=== PATIENT | female | born 1965 | race Caucasian/White ===

== ENCOUNTER → 2016-11-08 | Outpatient (CLI) | payer BC ==
--- NOTE | 2016-11-09 11:34 | MM ---
Reason for exam: screening (asymptomatic). Last mammogram was performed 1 year and 3 months ago. History: Patient is postmenopausal. Reductions of both breasts, 1988. Took hormonal contraceptives for 1 year beginning at age 21. Taking other hormone for 5 years beginning at age 37. Physical Findings: A clinical breast exam by your physician is recommended on an annual basis and results should be correlated with mammographic findings. MG 3D Screening Mammo W/Cad Bilateral CC and MLO view(s) were taken. Prior study comparison: August 03, 2015, bilateral MG screening mammo w CAD. January 07, 2014, bilateral digital screening mammo w/CAD. November 05, 2012, CAD bilateral diagnostic mammogram. The breast tissue is heterogeneously dense. This may lower the sensitivity of mammography. Finding: There are typically benign round calcifications in both breasts. There is no discrete abnormality. ASSESSMENT: Benign, BI-RAD 2 RECOMMENDATION: Routine screening mammogram of both breasts in 1 year.
== END | disposition home or self-care (01) ==
LOC: RADMAMWWP 07:14
PROVIDERS: ATTEND Internal Medicine
DX: Z12.31 Encounter for screening mammogram for malignant neoplasm of breast (principal)
CPT/HCPCS: 77063; G0202

== ENCOUNTER → 2017-11-29 | Outpatient (CLI) | payer BC ==
--- NOTE | 2017-11-29 14:12 | MM ---
Reason for exam: screening (asymptomatic). Last mammogram was performed 1 year and 1 month ago. History: Patient is postmenopausal. Reductions of both breasts, 1988. Took hormonal contraceptives for 1 year beginning at age 21. Taking other hormone for 5 years beginning at age 37. Physical Findings: A clinical breast exam by your physician is recommended on an annual basis and results should be correlated with mammographic findings. MG 3D Screening Mammo W/Cad Bilateral CC and MLO view(s) were taken. Prior study comparison: November 08, 2016, bilateral MG 3d screening mammo w/cad. August 03, 2015, bilateral MG screening mammo w CAD. The breast tissue is heterogeneously dense. This may lower the sensitivity of mammography. Finding: There are typically benign round calcifications in both breasts. There is no discrete abnormality. ASSESSMENT: Benign, BI-RAD 2 RECOMMENDATION: Routine screening mammogram of both breasts in 1 year.
== END | disposition home or self-care (01) ==
LOC: RADMAMWWP 06:57
PROVIDERS: ATTEND Internal Medicine
DX: Z12.31 Encounter for screening mammogram for malignant neoplasm of breast (principal)
CPT/HCPCS: 77063; 77067

== ENCOUNTER → 2019-01-27 | Outpatient (CLI) | payer BC ==
--- NOTE | 2019-01-27 18:27 | BD ---
EXAMINATION TYPE: Axial Bone Density DATE OF EXAM: 01/27/2019 COMPARISON: NONE CLINICAL HISTORY: 53-year-old female postmenopausal screening Height: 68 IN Weight: 224 LBS FRAX RISK QUESTIONS: Secondary Osteoporosis: 2. Hyperthyroidism: YES 3. Menopause before 45: PARTIAL HYST. AGE 44 RISK FACTORS HISTORY OF: Active: YES Diet low in dairy products/other sources of calcium: YES Postmenopausal woman: AGE 44 Take estrogen and/or progesterone medications: CONTROL AGE 18-19 MEDICATIONS: Thyroid Medications: YES Which medication: Synthroid How Lon + YEARS Additional Medications: SYNTHROID, METOPROLOL,WATER PILL, LIPITOR EXAM MEASUREMENTS: Bone mineral densitometry was performed using the Synthace System. Bone mineral density as measured about the Lumbar spine is: ----- L1-L4(G/cm2): 1.163 T Score Values are as follows: ----- L2: 0.3 ----- L3: -0.2 ----- L4: 0.7 ----- L1-L4: -0.1 Bone mineral density BASELINE Bone mineral density about the R hip (g/cm2): 0.909 Bone mineral density about the L hip (g/cm2): 0.973 T Score values are as follows: -----R Neck: -0.9 -----L Neck: -0.5 -----R Total: -0.9 -----L Total: -0.9 Bone mineral density BASELINE IMPRESSION: Normal (Values between +1 and -1 indicate normal bone mass). Consider repeating this study in 5 year s or sooner if there is some new clinical indication. NOTE: T-SCORE=SD OF THE YOUNG ADULT MEAN.
--- NOTE | 2019-01-29 11:42 | MM ---
Reason for exam: screening (asymptomatic). Last mammogram was performed 1 year and 2 months ago. History: Patient is postmenopausal. Reductions of both breasts, 1988. Took hormonal contraceptives for 1 year beginning at age 21. Taking other hormone for 5 years beginning at age 37. Physical Findings: A clinical breast exam by your physician is recommended on an annual basis and results should be correlated with mammographic findings. MG 3D Screening Mammo W/Cad Bilateral CC and MLO view(s) were taken. Prior study comparison: November 29, 2017, bilateral MG 3d screening mammo w/cad. November 08, 2016, bilateral MG 3d screening mammo w/cad. The breast tissue is heterogeneously dense. This may lower the sensitivity of mammography. Post mammoplasty changes. No significant changes when compared with prior studies. ASSESSMENT: Benign, BI-RAD 2 RECOMMENDATION: Routine screening mammogram of both breasts in 1 year.
== END | disposition home or self-care (01) ==
LOC: RADMAMWWP 06:49
PROVIDERS: ATTEND Obstetrics & Gynecology
DX: Z12.31 Encounter for screening mammogram for malignant neoplasm of breast (principal); Z78.0 Asymptomatic menopausal state
CPT/HCPCS: 77063; 77067; 77080

== ENCOUNTER → 2020-09-30 | Outpatient (CLI) | payer BC ==
--- NOTE | 2020-10-05 10:01 | MM ---
Reason for exam: screening (asymptomatic). Last mammogram was performed 1 year and 8 months ago. History: Patient is postmenopausal. Reductions of both breasts, 1988. Took hormonal contraceptives for 1 year beginning at age 21. Taking other hormone for 5 years beginning at age 37. Physical Findings: A clinical breast exam by your physician is recommended on an annual basis and results should be correlated with mammographic findings. MG 3D Screening Mammo W/Cad Bilateral CC and MLO view(s) were taken. Prior study comparison: January 27, 2019, bilateral MG 3d screening mammo w/cad. November 29, 2017, bilateral MG 3d screening mammo w/cad. The breast tissue is heterogeneously dense. This may lower the sensitivity of mammography. There is chronic nodularity bilaterally. No significant changes when compared with prior studies. ASSESSMENT: Benign, BI-RAD 2 RECOMMENDATION: Routine screening mammogram of both breasts in 1 year.
== END | disposition home or self-care (01) ==
LOC: RADMAMWWP 08:14
PROVIDERS: ATTEND Obstetrics & Gynecology
DX: Z12.31 Encounter for screening mammogram for malignant neoplasm of breast (principal)
CPT/HCPCS: 77063; 77067

== ENCOUNTER → 2021-06-15 | Outpatient (CLI) | payer BC ==
--- NOTE | 2021-06-15 13:46 | ECHOS ---
STRESS ECHOCARDIOGRAM DATE OF STUDY: 06/15/2021 INDICATIONS: @@ BASELINE HEART RATE: @@ BASELINE BLOOD PRESSURE: @@ MAXIMUM HEART RATE: @@ MAXIMUM BLOOD PRESSURE: @@ 85% MPHR: @@ 100% MPHR: @@ METS: @@ MAXIMUM STAGE REACHED: @@ TOTAL EXERCISE TIME: @@ CLINICAL INFORMATION: STRESS DATA: Heart rate is 74, pressure 113/44 mmHg. Baseline EKG showed sinus mechanism. The patient exercised on the treadmill according to Hoang protocol for a total of 8 minutes and 50 seconds. Max heart rate was 159, which is about 98% of maximum predicted heart rate, and maximum blood pressure was 263/48 mmHg. Clinically the patient did not have any symptoms. The EKG did not show any significant ST or T- wave abnormalities concerning for ischemia. Echocardiogram images from parasternal long axis view, parasternal short axis view, apical 4-chamber and apical 2-chamber views were obtained as the baseline images, at the peak of the heart rate as well as on recovery. The echocardiogram images showed good augmentation in the left ventricular systolic function without any evidence of wall motion abnormalities concerning for ischemia. CONCLUSION: 1. Excellent exercise tolerance. 2. Normal EKG in response to exercise. 3. Normal echocardiogram in response to exercise. MMODL / IJN: [id number] /
== END | disposition home or self-care (01) ==
LOC: RADNMMAIN 09:06
PROVIDERS: ATTEND Internal Medicine
DX: R07.9 Chest pain, unspecified (principal)
CPT/HCPCS: 93351; Q9950

== ENCOUNTER 2021-08-04 05:58 | Emergency (ER) | payer BC ==
[2021-08-04 06:09] VITALS: BP 139/92; PULSE 89; RESP 20; TEMP 98.8
--- NOTE | 2021-08-04 06:46 | ED ---
SOB HPI - General Chief Complaint: Shortness of Breath Stated Complaint: SOB,Cough Time Seen by Provider: 08/04/21 06:09 Source: patient, RN notes reviewed Mode of arrival: ambulatory - History of Present Illness Initial Comments: Patient is a 55-year-old female that presents to the emergency department complaining of being Covid-positive since 07/26/2021. She notes that last night she got over the bathroom had an episode of diarrhea then felt like all of her limbs went numb. She was able to walk to the bed to reach was herself. She notes that she had felt nauseous and vomiting. She notes that she came to the emergency room to get a chest x-ray to make sure she didn't have any pneumonia. She notes that her son had Covid back in December and waited too long to get eval uated and develops pneumonia with empyema. She notes she is concerned for possible pneumonia at this time and only wants chest x-ray. She denied any chest pain headache constipation fever fatigue chills wheezing dyspnea on exertion night sweats. - Related Data Home Medications Medication Instructions Recorded Confirmed Cholecalciferol [Vitamin D3] 2,000 unit PO DAILY 09/15/16 09/20/16 LORazepam [Ativan] 1 mg PO DIRECTED PRN 09/15/16 09/20/16 Levothyroxine Sodium [Synthroid] 175 mcg PO DAILY 09/15/16 09/20/16 Maxzide (Unknown Dose) 1 tab PO PC-LUNCH 09/15/16 09/20/16 Metoprolol (Unknown Dose) 0.5 tab PO HS 09/15/16 09/20/16 Multivitamins, Thera [Multivitamin] 1 tab PO DAILY 09/15/16 09/20/16 Allergies Allergy/AdvReac Type Severity Reaction Status Date / Time No Known Allergies Allergy Verified 08/04/21 06:09 Review of Systems ROS Statement: Those systems with pertinent positive or pertinent negative responses have been documented in the HPI. ROS Other: All systems not noted in ROS Statement are negative. Past Medical History Past Medical History: Hypertension, Thyroid Disorder History of Any Multi-Drug Resistant Organisms: None Reported Past Surgical History: Appendectomy, Breast Surgery, Hysterectomy Additional Past Surgical History / Comment(s): PARTIAL HYSTERECTOMY, BUNIONECTOMY, BREAST REDUCTION, THYROID RADIATED. Past Anesthesia/Blood Transfusion Reactions: Family History of Problems w/ Anesthesia, Motion Sickness, Postoperative Nausea & Vomiting (PONV) Additional Past Anesthesia/Blood Transfusion Reaction / Comment(s): MOTHER =PONV Past Psychological History: Anxiety Smoking Status: Never smoker Past Alcohol Use History: Occasional Past Drug Use History: None Reported - Past Family History Mother Family Medical History: No Reported History General Exam General appearance: alert, in no apparent distress, obese Head exam: Present: atraumatic, normocephalic, normal inspection Eye exam: Present: normal appearance, PERRL, EOMI. Absent: scleral icterus, conjunctival injection, periorbital swelling ENT exam: Present: normal exam, mucous membranes moist Neck exam: Present: normal inspection Respiratory exam: Present: normal lung sounds bilaterally. Absent: respiratory distress, wheezes, rales, rhonchi, stridor Cardiovascular Exam: Present: regular rate, normal rhythm, normal heart sounds. Absent: systolic murmur, diastolic murmur, rubs, gallop, clicks GI/Abdominal exam: Present: soft, normal bowel sounds. Absent: distended, tenderness, guarding, rebound, rigid Extremities exam: Present: normal inspection, full ROM, normal capillary refill. Absent: tenderness, pedal edema, joint swelling, calf tenderness Neurological exam: Present: alert, oriented X3 Psychiatric exam: Present: normal affect, normal mood Skin exam: Present: warm, dry, intact, normal color. Absent: rash Course Vital Signs 08/04/21 06:05 Temperature 98.8 F Pulse Rate 89 Respiratory 20 Rate Blood Pressure 139/92 O2 Sat by Pulse 98 Oximetry Medical Decision Making - Medical Decision Making 55-year-old female Covid-positive with left-sided nausea vomiting diarrhea wan ting a chest x-ray this time. Chest x-ray ordered. Patient was informed that she does meet criteria for monoclonal antibody infusion for Covid positive result. Patient states she will think about it as she is not sure if she needs it at this time due to her displaying very minimal symptoms. Chest x-ray shows subtle mid and lower lobes infiltrates consistent with Covid. Case discussed with Dr. Isabel, patient can discharge home with continuing conservative management follow-up primary care. - Radiology Data Radiology results: report reviewed, image reviewed Chest x-ray: Subtle interstitial density mid and lower lungs reflect subtle covert infiltrates. No kraig airspace disease. Disposition Clinical Impression: COVID Disposition: HOME SELF-CARE Condition: Stable Instructions (If sedation given, give patient instructions): Coronavirus Disease 2019 (COVID-19) Additional Instructions: Please return to the Emergency Department if symptoms worsen or any other concerns. Follow-up with primary care in 1-2 days. Continue conservative management with Tylenol Motrin as needed for aches pains and fevers. Get plenty of rest and fluids. Is patient prescribed a controlled substance at d/c from ED?: No Referrals: Samuel Haile MD [Primary Care Provider] - 1-2 days Time of Disposition: 07:32
--- NOTE | 2021-08-04 07:26 | XR ---
EXAMINATION TYPE: XR chest 2V DATE OF EXAM: 08/04/2021 COMPARISON: None HISTORY: 55-year-old female COVID, cough, shortness of breath TECHNIQUE: PA and lateral views FINDINGS: The cardiomediastinal silhouette, aorta, and pulmonary vasculature are within normal limits. Mild int erstitial density mid and lower lungs. Hazy lower lung density related to overlying soft tissue. No f rank consolidation or pleural effusion. IMPRESSION: Subtle interstitial density mid and lower lungs could reflect subtle COVID infiltrates. No kraig airs pace disease.
== END 2021-08-04 07:57 | disposition home or self-care (01) ==
LOC: EC 05:58
DX: U07.1 COVID-19 (principal); I10 Essential (primary) hypertension; E07.9 Disorder of thyroid, unspecified; F41.9 Anxiety disorder, unspecified; Z90.49 Acquired absence of other specified parts of digestive tract; Z90.710 Acquired absence of both cervix and uterus
CPT/HCPCS: 71046; 99284

== ENCOUNTER → 2022-01-13 | Outpatient (CLI) | payer BC ==
--- NOTE | 2022-01-18 08:36 | MM ---
Reason for exam: screening (asymptomatic). Last mammogram was performed 1 year and 3 months ago. History: Patient is postmenopausal. Reductions of both breasts, 1988. Took hormonal contraceptives for 1 year beginning at age 21. Taking other hormone for 5 years beginning at age 37. Physical Findings: A clinical breast exam by your physician is recommended on an annual basis and results should be correlated with mammographic findings. MG 3D Screening Mammo W/Cad Bilateral CC and MLO view(s) were taken. Prior study comparison: September 30, 2020, bilateral MG 3d screening mammo w/cad. January 27, 2019, bilateral MG 3d screening mammo w/cad. Finding: There is increased equal architectural distortion in the lower outer quadrant, middle position of the left breast on CC view, not as clearly seen on MLO view. New finding since September 30, 2020 and January 27, 2019. ASSESSMENT: Incomplete: need additional imaging evaluation, BI-RAD 0 RECOMMENDATION: Special view mammogram of the left breast. If lesion persists on supplemental views, image directed ultrasound is recommended. [facility] will attempt to contact patient to return for supplemental views and ultrasound if indicated.
== END | disposition home or self-care (01) ==
LOC: RADMAMWWP 16:23
PROVIDERS: ATTEND Obstetrics & Gynecology
DX: Z12.31 Encounter for screening mammogram for malignant neoplasm of breast (principal); Z78.0 Asymptomatic menopausal state
CPT/HCPCS: 77063; 77067

== ENCOUNTER → 2022-01-18 | Outpatient (CLI) | payer BC ==
--- NOTE | 2022-01-19 13:34 | MM ---
Reason for exam: additional evaluation requested from abnormal screening. Last mammogram was performed less than 1 month ago. History: Patient is postmenopausal. Reductions of both breasts, 1988. Took hormonal contraceptives for 1 year beginning at age 21. Taking other hormone for 5 years beginning at age 37. Physical Findings: A clinical breast exam by your physician is recommended on an annual basis and results should be correlated with mammographic findings. MG 3D Work Up W/Cad LT Spot compression CC, spot compression MLO, and LM view(s) were taken of the left breast. Prior study comparison: January 13, 2022, bilateral MG 3d screening mammo w/cad. September 30, 2020, bilateral MG 3d screening mammo w/cad. Persistent distortion outer left breast. Ultrasound recommended of outer half, 6.7cm from nipple. Results were given to the patient verbally at the time of the exam. ASSESSMENT: Incomplete: need additional imaging evaluation, BI-RAD 0 RECOMMENDATION: Ultrasound of the left breast.
--- NOTE | 2022-01-19 13:37 | USB ---
Reason for exam: additional evaluation requested from abnormal screening. History: Patient is postmenopausal. Reductions of both breasts, 1988. Took hormonal contraceptives for 1 year beginning at age 21. Taking other hormone for 5 years beginning at age 37. Physical Findings: A clinical breast exam by your physician is recommended on an annual basis and results should be correlated with mammographic findings. US Breast Workup Limited LT Left limited breast ultrasound including focal area of concern, retroareolar and axilla demonstrates no cystic or solid lesion seen. No abnormality seen. Given area of distortion on mammography 3D stereotactic core biopsy recommended. Results were given to the patient verbally at the time of the exam. ASSESSMENT: Suspicious, BI-RAD 4 RECOMMENDATION: Stereotactic core biopsy of the left breast. (3D stereotactic core biopsy) Called Dr. Layton's office with mammographic findings. Dr. Layton's office to follow up with patient and will schedule appointment for the patient with Dr. Sierra after biospy. PRELIMINARY REPORT CALLED AND FAXED TO DR. SIERRA ON 01/19/22.
== END | disposition home or self-care (01) ==
LOC: RADMAMWWP 14:42
PROVIDERS: ATTEND Obstetrics & Gynecology
DX: R92.8 Other abnormal and inconclusive findings on diagnostic imaging of breast (principal)
CPT/HCPCS: 77061; 77065

== ENCOUNTER → 2022-09-14 | Outpatient (CLI) | payer BC ==
--- NOTE | 2022-09-15 17:19 | MM ---
Reason for Exam: Follow-up at short interval from prior study. Last screening mammogram was performed 8 month(s) ago. Patient History: Menarche at age 13. First Full-Term at age 31. Late child-bearing (after 31). Hysterectomy at age 44. Postmenopausal. Hormonal Contraceptives, starting at age 21 for 1 year. 02/02/2022, MG stereo VAD BX LT - 2 on the Left side. 1988, Bilateral Reduction. Risk Values: Ene 5 year model risk: 2.0%. NCI Lifetime model risk: 12.8%. Prior Study Comparison: 08/13/2008 Bilateral Diagnostic Mammogram, [facility]. 12/09/2009 Bilateral Diagnostic Mammogram, [facility]. 08/23/2011 Bilateral Diagnostic Mammogram, [facility]. 11/05/2012 Bilateral Diagnostic Mammogram, [facility]. 01/07/2014 Bilateral Screening Mammogram, [facility]. 08/03/2015 Bilateral Screening Mammogram, [facility]. 11/08/2016 Bilateral Screening Mammogram, [facility]. 11/29/2017 Bilateral Screening Mammogram, [facility]. 01/27/2019 Bilateral Screening Mammogram, [facility]. 09/30/2020 Bilateral Screening Mammogram, [facility]. 01/13/2022 Bilateral Screening Mammogram, [facility]. 01/18/2022 Left Diagnostic Mammogram, [facility]. 01/18/2022 Left Diagnostic Ultrasound, [facility]. Tissue Density: Left: The breast tissue is heterogeneously dense. This may lower the sensitivity of mammography. Findings: Analyzed By CAD. Pattern appears stable. A core biopsy clip is at the area of distortion from the prior exams. No significant interval change is evident. Overall Assessment: Benign, BI-RAD 2 Management: Screening Mammogram of both breasts in 6 months. A clinical breast exam by your physician is recommended on an annual basis and results should be correlated with mammographic findings. This exam should not preclude additional follow-up of suspicious palpable abnormalities. Results were given to the patient verbally at the time of exam. Electronically signed and approved by: Pop Jett D.O. Radiologis
== END | disposition home or self-care (01) ==
LOC: RADMAMWWP 09:24
PROVIDERS: ATTEND Surgery
DX: R92.8 Other abnormal and inconclusive findings on diagnostic imaging of breast (principal); Z78.0 Asymptomatic menopausal state
CPT/HCPCS: 77061; 77065

== ENCOUNTER 2023-02-05 06:45 | Day surgery (SDC) | payer BC ==
[~2023-02-05 06:45] MED LIST: ACETAMINOPHEN TAB 500 MG TAB PO PRN; HEPARIN SODIUM,PORCINE/PF 5,000 UNIT/0.5 ML SYRINGE SQ PRN; Pre Op ABX Message 1 EACH MISC MISCELLANE ONE
[2023-02-05] MEDS ORDERED: HYDROmorphone 0.5 MG/0.5 ML SYRINGE IVP PRN (07:01)
[2023-02-05] MEDS ORDERED: ONDANSETRON 4 MG/2 ML VIAL IVP ONE (07:01)
[2023-02-05] MEDS ORDERED: LACTATED RINGERS 1,000 ML IV SCH (07:01)
[2023-02-05] MEDS ORDERED: DEXAMETHASONE SOD PHOSPHATE 4 MG/ML 1 ML VIAL IV ONE (07:01)
[2023-02-05] MEDS ORDERED: ALPRAZolam 0.5 MG TAB ONE (07:37)
--- NOTE | 2023-02-05 07:45 | P.GSHP ---
History of Present Illness H&P Date: 02/05/23 Chief Complaint: Abnormal left mammogram 57-year-old female presents today for left breast wire localization biopsy. Patient had a previous stereotactic core biopsy left breast at an area of distortion. Fat necrosis was seen. On subsequent mammogram the area of distortion persists and has increased. For that reason [facility] and our radiography team here are suggesting wire localization biopsy of that area of distortion left breast because of discordance. Patient had a recent ultrasound core biopsy showing benign fat necrosis and a small cyst. She has a right-sided 9 mm lymph node being monitored. Follow-up ultrasound in March is scheduled. History of previous bilateral breast reduction. Past Medical History Past Medical History: Hyperlipidemia, Hypertension, Thyroid Disorder Additional Past Medical History / Comment(s): thyroid irradiated History of Any Multi-Drug Resistant Organisms: None Reported Past Surgical History: Appendectomy, Breast Surgery, Hysterectomy Additional Past Surgical History / Comment(s): PARTIAL HYSTERECTOMY, BUNIONECTOMY, BREAST REDUCTION Past Anesthesia/Blood Transfusion Reactions: Family History of Problems w/ Anesthesia, Motion Sickness, Postoperative Nausea & Vomiting (PONV) Additional Past Anesthesia/Blood Transfusion Reaction / Comment(s): MOTHER =PONV Smoking Status: Never smoker - Past Family History Mother Family Medical History: No Reported History Medications and Allergies Home Medications Medication Instructions Recorded Confirmed Type Levothyroxine Sodium [Synthroid] 175 mcg PO DAILY 09/15/16 02/05/23 History Metoprolol Succinate (ER) [Toprol 25 mg PO HS 09/15/16 02/05/23 History Xl] Triamterene-Hctz 37.5-25Mg 1 tab PO HS 09/15/16 02/05/23 History [Maxzide 37.5-25] Atorvastatin [Lipitor] 10 mg PO HS 02/01/23 02/05/23 History Allergies Allergy/AdvReac Type Severity Reaction Status Date / Time No Known Allergies Allergy Verified 02/05/23 07:18 Surgical - Exam Vital Signs Temp Pulse Resp BP Pulse Ox 98.1 F 70 16 159/91 97 02/05/23 07:06 02/05/23 07:06 02/05/23 07:06 02/05/23 07:06 02/05/23 07:06 Physical exam: General: Well-developed, well-nourished HEENT: Normocephalic, sclerae nonicteric Right breast: No masses, no adenopathy Left breast: No masses, no adenopathy Abdomen: Nontender, nondistended Extremities: No edema Neuro: Alert and oriented Assessment and Plan (1) Abnormality of left breast on screening mammogram Narrative/Plan: 57-year-old female with abnormal left mammogram. We'll proceed with left breast wire localization biopsy at this time. Case reviewed with radiology this morning. Current Visit: Yes Status: Acute Code(s): R92.8 - OTH ABN AND INCONCLUSIVE FINDINGS ON DX IMAGING OF BREAST SNOMED Code(s): 111612244
[2023-02-05] MEDS ORDERED: LIDOCAINE 1% (10MG/ML) FOR IV START SQ ONE (08:15)
[2023-02-05 08:35] VITALS: TEMP 98.7
[2023-02-05] MEDS ORDERED: PROPOFOL 10 MG/ML 20 ML VIAL IV ONE (09:19)
[2023-02-05] MEDS ORDERED: MIDAZOLAM 2 MG/2 ML VIAL ONE (09:19)
[2023-02-05] MEDS ORDERED: LIDOCAINE 2% INJ 20 MG/ML (2 ML VIAL) ONE (09:19)
[2023-02-05] MEDS ORDERED: fentaNYL (PF) 50 MCG/ML 2 ML AMP ONE (09:19)
[2023-02-05] MEDS ORDERED: SODIUM CHLORIDE 0.9% 50 ML with ceFAZolin 2,000 MG IV ONE ×2 (09:25)
[2023-02-05] MEDS ORDERED: BUPIVACAINE (PF) 0.25% 30 ML VIAL SQ ONE ×2 (09:50→10:01)
[2023-02-05] MEDS ORDERED: NALOXONE 0.4 MG/ML 1 ML VIAL IV PRN (10:17)
[2023-02-05] MEDS ORDERED: traMADol 50 MG TAB PO PRN (10:17)
[2023-02-05] MEDS ORDERED: ACETAMINOPHEN TAB 325 MG TAB PO PRN (10:17)
--- NOTE | 2023-02-05 10:22 | P.OP ---
Date of Procedure: 02/05/23 Procedure(s) Performed: PREOPERATIVE DIAGNOSIS: Abnormal left mammogram POSTOPERATIVE DIAGNOSIS: Same PROCEDURE: Left Breast wire localization biopsy SURGEON: Rigo EBL: Minimal ANESTHESIA: General plus local COMPLICATIONS: None OPERATIVE PROCEDURE: Patient was placed on the operating room table in the supi ne position. The patient's breast was prepped and draped in usual sterile fashion. A curvilinear incision was made adjacent to the wire entrance site at 3:00. I followed the wire down into the breast tissue. The breast tissue around the tip of the wire was fully excised using electrocautery. The specimen was sent for specimen radiogram. The density and clip was present within the specimen. The subcutaneous tissues were inspected. No bleeding was seen. The subcutaneous tissues were closed using 3-0 Vicryl sutures. The skin was closed using a running 4-0 Monocryl stitch. Skin glue and sterile dressings were applied. DISPOSITION: Stable to recovery room
[2023-02-05 10:32] VITALS: RESP 16
[2023-02-05 11:16] VITALS: BP 116/75; PULSE 68
--- NOTE | 2023-02-09 13:26 | MM ---
Risk Values: Ene 5 year model risk: 2.0%. NCI Lifetime model risk: 12.8%. Pathology Description: Location: upper outer quadrant. Approach: Lateral to Medial The procedure of needle localization with wire placement and than surgical excision was explained to the patient. Benefits, alternatives, and risks were discussed. An informed consent was then obtained. The lateral left breast density corresponding to architectural distortion on the CC view was targeted for excision. The shortest pathway for procedure was chosen. Shortest pathway was a lateral approach. The overlying skin was prepped and draped in usual sterile fashion. Lidocaine was used as anesthetic into the skin and subcutaneous tissue up to the level of area of concern. A 7 cm Kopan's needle was used. It was placed via a lateral approach under mammographic guidance. Subsequent 90 degrees mammogram show the needle to be in satisfactory position relative to the targeted area. At this point, wire was placed and the needle was withdrawn. The wire was fixed to patient's skin. Images were marked for surgeon. The previous biopsy clip is located inferior to the wire position. The patient tolerated the procedure well without any immediate complication. The patient was kept in the radiology department for short stay after the procedure and then taken to surgery for surgical excision. Targeted density and wire are identified in specimen mammogram. The microclip is also included within the specimen. The patient was kept in hospital for short stay after the procedure and then discharged home in stable condition. IMPRESSION: Successful, uncomplicated needle localization with wire placement and surgical excision of area of architectural distortion lateral left breast; full pathology results to follow. Pathology Results: Result: Benign, Fibrocystic change. LEFT BREAST, NEEDLE LOCALIZATION EXCISION: Benign breast with fibrocystic changes, fibrosis/scar and features suggestive of previous biopsy site. Overall Assessment: Benign Management: Diagnostic Mammogram of the left breast in 6 months. Electronically signed and approved by: Grady Bergman M.D. Radiologist
== END 2023-02-05 11:57 | disposition home or self-care (01) ==
LOC: OR 06:45
PROVIDERS: ATTEND Surgery
DX: N60.12 Diffuse cystic mastopathy of left breast (principal); I10 Essential (primary) hypertension; E78.5 Hyperlipidemia, unspecified; E07.9 Disorder of thyroid, unspecified; K91.0 Vomiting following gastrointestinal surgery; Z90.710 Acquired absence of both cervix and uterus; Z90.49 Acquired absence of other specified parts of digestive tract; Z98.82 Breast implant status; Z79.890 Hormone replacement therapy; Z79.899 Other long term (current) drug therapy
CPT/HCPCS: 88307; 76098; 19281; J2250; J1100; J2405; J0690; J3010; J2704; J1644; J2001

== ENCOUNTER → 2025-03-25 | Outpatient (CLI) | payer BC ==
--- NOTE | 2025-03-25 15:11 | CA ---
Transthoracic Echo Report Name: Ewa Avitia Age: 59 Gender: F : 1965 Exam Date: 03/25/2025 12:58 Exam Location: [facility] Ht (in): 69 Wt (lb): 212 Ordering Physician: Abdoul Negron DO Attending/Referring Phys: Abdoul Negron DO Application Designer Isa Ruano, JOSE Procedure CPT: Indications: R01.1 cardiac murmur Cardiac Hx: Technical Quality: Good Contrast 1: Total Dose (mL): Contrast 2: Total Dose (mL): MEASUREMENTS (Male / Female) Normal Values 2D ECHO LV Diastolic Volume MOD BP 61.6 cm??? 67 - 155 / 56 - 104 cm??? LV Systolic Volume MOD BP 23.9 cm??? 22 - 58 / 19 - 49 cm??? LV Ejection Fraction MOD BP 61.2 % >= 55 % LV Cardiac Index MOD BP 1084.3 cm???/min???m??? LV Diastolic Volume MOD 4C 70.3 cm??? LV Systolic Volume MOD 4C 22.4 cm??? LV Ejection Fraction MOD 4C 68.1 % LV Cardiac Index MOD 4C 1375.8 cm???/min???m??? LV Diastolic Length 4C 7.4 cm LV Systolic Length 4C 5.7 cm LV Diastolic Volume MOD 2C 52.0 cm??? LV Systolic Volume MOD 2C 23.8 cm??? LV Ejection Fraction MOD 2C 54.2 % LV Cardiac Index MOD 2C 810.0 cm???/min???m??? LV Diastolic Length 2C 7.1 cm LV Systolic Length 2C 6.2 cm LA Volume 58.4 cm??? 18 - 58 / 22 - 52 cm??? LA Volume Index 26.6 cm???/m??? 16 - 28 cm???/m??? M-MODE Aortic Root Diameter MM 2.9 cm LA Systolic Diameter MM 3.3 cm LA Ao Ratio MM 1.1 AV Cusp Separation MM 1.9 cm DOPPLER AV Peak Velocity 169.3 cm/s AV Peak Gradient 11.5 mmHg AV Mean Velocity 116.7 cm/s AV Mean Gradient 6.0 mmHg AV Velocity Time Integral 35.0 cm LVOT Peak Velocity 149.7 cm/s LVOT Peak Gradient 9.0 mmHg LVOT Velocity Time Integral 34.8 cm MV Area PHT 2.6 cm??? Mitral E Point Velocity 90.7 cm/s Mitral A Point Velocity 77.2 cm/s Mitral E to A Ratio 1.2 MV Deceleration Time 286.7 ms TR Peak Velocity 188.8 cm/s TR Peak Gradient 14.3 mmHg FINDINGS Left Ventricle Left ventricular ejection fraction is estimated at 55-60 %. Normal Left ventricular size, wall thickness, systolic function with no obvious regional wall motion abnormalities. Normal Left ventricular diastolic filling pattern. Right Ventricle Normal right ventricular size and function. Right ventricle at upper limits of normal. Right Atrium Normal right atrial size. Left Atrium Mildly increased left atrial volume. Mitral Valve Structurally normal mitral valve. Trace to mild mitral regurgitation. No mitral stenosis. Aortic Valve Trileaflet aortic valve. No aortic valve stenosis or regurgitation. Tricuspid Valve Structurally normal tricuspid valve. Trace tricuspid regurgitation. No tricuspid stenosis. Pulmonic Valve Structurally normal pulmonic valve. No pulmonic stenosis. Trace pulmonic regurgitation. Pericardium No pericardial or pleural effusion. Aorta Normal size aortic root and proximal ascending aorta. CONCLUSIONS Normal LV size and systolic function. No significant abnormality on the Doppler exam. No pulmonary hypertension. No pericardial effusion Previewed by: Dr. Patrick Lopez MD (Electronically Signed) Final Date: 25 March 2025 15:11
== END | disposition home or self-care (01) ==
LOC: RADECHMAIN 12:40
PROVIDERS: ATTEND Family Medicine
DX: R01.1 Cardiac murmur, unspecified (principal)
CPT/HCPCS: 93306